=== PATIENT | male | born 1950 | race Caucasian/White ===

== ENCOUNTER → 2016-12-02 | Outpatient (CLI) | payer OTHER ==
--- NOTE | 2016-12-03 09:04 | CT ---
HISTORY: Possible lung nodule noted on previous chest radiographs, shortness of breath Study: CT chest with contrast Comparison: None Technique: Multiple axial images of the chest were obtained from the thoracic inlet to the upper abdo men without the administration of IV contrast. Dose reduction techniques including automated exposure control (AEC) and adjustment of mA and kV were utilized. Findings: Numerous scattered subcentimeter lymph nodes are seen within the mediastinum as measured across their short axis. Evaluation of the mediastinum, hilar regions, and vascular structures is limited without IV contrast. Atherosclerotic changes are seen within the visualized coronary arteries and aorta. Th ere is no paracardial effusion observed. There is mild aneurysmal dilatation of the ascending thorac ic aorta which measures up to 4.2 cm in caliber. An approximate 4 mm calcified granuloma is seen with in the mid right lung. The previously noted 7 mm noncalcified nodule within the right upper lobe is n ot definitely appreciated on today's study. Followup exam may be performed in 6-12 months for further evaluation as clinically indicated. Otherwise no CT evidence of focal consolidation, pneumothorax, o r pleural effusion is identified. IMPRESSION: 1. Mild aneurysmal dilatation of the ascending thoracic aorta measuring up to 4.2 cm in caliber. 2. 4 mm calcified granuloma within the mid right lung. 3. The noted right upper lobe noncalcified nodule is not definitely visualized on today's study. Reported By:
== END | disposition home or self-care (01) | DRG 206 ==
LOC: RAD 14:40
PROVIDERS: ATTEND Internal Medicine Sleep Medicine
DX: R91.1 Solitary pulmonary nodule (principal); I71.2 Thoracic aortic aneurysm, without rupture; J84.10 Pulmonary fibrosis, unspecified
CPT/HCPCS: 71250